=== PATIENT | female | born 1960 | race Caucasian/White ===

== ENCOUNTER → 2016-10-24 | Outpatient (CLI) | payer MEDICARE, MEDICAID | LOC: LAB 14:20 | DX: E11.65 Type 2 diabetes mellitus with hyperglycemia (principal); I10 Essential (primary) hypertension; J45.40 Moderate persistent asthma, uncomplicated; E78.2 Mixed hyperlipidemia; D64.9 Anemia, unspecified ==

== ENCOUNTER → 2016-12-12 | Outpatient (CLI) | payer MEDICARE, MEDICAID | LOC: RAD 16:56 | DX: M25.551 Pain in right hip (principal); W19.XXXA Unspecified fall, initial encounter ==

== ENCOUNTER → 2017-09-18 | Outpatient (CLI) | payer MEDICARE, MEDICAID ==
[~2017-09-18] VITALS: Ht 154.9 cm; Wt 105.0 kg
[~2017-09-18] MED LIST: AMLODIPINE BESYL5 MG PO; BUSPIRONE HYDRO10 MG PO; CYCLOBENZAPRINE10 M1 PO; DESYREL 100MG100 MG PO; DULOXETINE30 MG PO; FLUTICASON0.05 MG/AC NS; HYZAAR 100-251 EACH PO; LAMICTAL200 M1 PO; LEVOTHYROXINE0.15 MG PO; LIPITOR 40MG TA40 MG PO; MORPHINE SULFAT15 M7 PO; NEURONTIN600 M1 PO; NOVOLOG FLEX100 U/ML SQ; NOVOLOG MIX 70/33 ML SQ; SINEMET CR 25 M1 TER PO; ZYLOPRIM 100MG100 MG PO
[2017-09-18 12:37] VITALS: BP 117/70
== END ==
LOC: AMSURD 11:45
DX: Z45.2 Encounter for adjustment and management of vascular access device (principal)
CPT/HCPCS: A4301; J1644

== ENCOUNTER 2018-01-01 11:28 | Outpatient (RCR) | payer MEDICARE, MEDICAID ==
[~2018-01-01] VITALS: Ht 154.9 cm; Wt 105.0 kg
[2018-01-01 11:35] VITALS: BP 158/72
[2018-01-01] MEDS ORDERED: BENADRYL PO (12:25)
[2018-03-03 10:43] VITALS: BP 185/82
== END 2018-04-01 | disposition home or self-care (01) ==
LOC: AMSURD
DX: Z45.2 Encounter for adjustment and management of vascular access device (principal); Z95.828 Presence of other vascular implants and grafts
CPT/HCPCS: J1644